=== PATIENT | male | born 1995 | race Two or more races ===

== ENCOUNTER 2022-01-18 05:31 | Emergency (ER) | payer SELFPAY ==
[~2022-01-18] VITALS: Ht 193 cm; Wt 136.1 kg
[2022-01-18 08:07] VITALS: BP 120/84
[2022-01-18] MEDS ORDERED: AMOX500C2 PO (08:54)
[2022-01-18] MEDS ORDERED: methylPREDNISolone SOD SUCC 125 MG/2 ML VL IM ONE (09:00)
== END 2022-01-18 10:07 | disposition home or self-care (01) ==
LOC: ER 05:31
DX: J03.90 Acute tonsillitis, unspecified (principal)
CPT/HCPCS: 96372; 99283; J2930